=== PATIENT | male | born 1995 ===

== ENCOUNTER 2018-11-12 21:43 | Emergency (ER) | payer OTHER ==
[2018-11-12 22:03] VITALS: BP 127/87; PULSE 80; RESP 17; TEMP 98.3; O2SAT 100
[2018-11-12] MEDS ORDERED: Simethicone 80 mg Chewtab PO STA (23:04)
[2018-11-12] MEDS ORDERED: Alum-Mag Hydrox-Simethicone Susp (30 mL) PO STA (23:04)
[2018-11-12] MEDS ORDERED: Alum-Mag Hydrox-Simethicone Susp (30 mL) ONE (23:30)
--- NOTE | 2018-11-13 00:04 | ED PDOC ---
HPI: Abdomen Time Seen by Provider: 11/12/18 22:55 Chief Complaint (Nursing): Chest Pain Chief Complaint (Provider): Abdominal and Chest Pain History Per: Patient History/Exam Limitations: no limitations Onset/Duration Of Symptoms: Days (x 1 week) Current Symptoms Are (Timing): Still Present Context: Food Quality Of Discomfort: Burning, "Pain" Alleviating Factors: None Additional Complaint(s): 23 year old male with a no significant medical history presents to the ED for evaluation of a epigastric and chest pain for 1 week, worsening today, prompting ED visit. Patient describes pain as burning and states that it became worse after he ate papaya today. He reports that he feels like vomiting, but has not been able to. Patient states that he took an antacid that he does not remember the name of prior to arrival with no relief. Patient has normal bowel movements. Denies fever, history of abdominal surgery and any additional complaints. PMD: none provided Past Medical History Reviewed: Historical Data, Nursing Documentation, Vital Signs Vital Signs: Last Vital Signs Temp 98.3 F 11/12/18 22:00 Pulse 80 11/12/18 22:00 Resp 17 11/12/18 22:00 BP 127/87 11/12/18 22:00 Pulse Ox 100 11/12/18 22:00 - Medical History PMH: No Chronic Diseases - Surgical History Surgical History: No Surg Hx - Family History Family History: States: Unknown Family Hx - Social History Current smoker - smoking cessation education provided: No Alcohol: Occasional Drugs: Denies - Home Medications Home Medications: Ambulatory Orders Medication Instructions Recorded Omeprazole 20 mg PO DAILY #30 11/13/18 Simethicone [Gas Relief 80] 80 mg PO DAILY #12 ctb 11/13/18 - Allergies Allergies/Adverse Reactions: Allergies Allergy/AdvReac Type Severity Reaction Status Date / Time No Known Allergies Allergy Verified 11/12/18 22:04 Review of Systems ROS Statement: Except As Marked, All Systems Reviewed And Found Negative Cardiovascular: Positive for: Chest Pain (burning) Gastrointestinal: Positive for: Nausea (feels like vomiting, but has not. ), Abdominal Pain (epigastric; burning), Other Physical Exam - Reviewed Nursing Documentation Reviewed: Yes Vital Signs Reviewed: Yes - Physical Exam Appears: Positive for: Non-toxic, No Acute Distress Head Exam: Positive for: ATRAUMATIC, NORMAL INSPECTION, NORMOCEPHALIC Skin: Positive for: Normal Color, Warm, Dry. Negative for: Rash Eye Exam: Positive for: EOMI, Normal appearance, PERRL Neck: Positive for: Normal, Painless ROM, Supple Cardiovascular/Chest: Positive for: Regular Rate, Rhythm. Negative for: Murmur Respiratory: Positive for: Normal Breath Sounds. Negative for: Respiratory Distress Gastrointestinal/Abdominal: Positive for: Soft, Tenderness (epigastric tenderness to palpation). Negative for: Guarding, Rebound, Other (McBurney's point and Baig's sign) Back: Positive for: Normal Inspection. Negative for: L CVA Tenderness, R CVA Tenderness Extremity: Positive for: Normal ROM (x 4). Negative for: Deformity Neurological/Psych: Positive for: Awake, Alert, Normal Tone, Oriented (x 3). Negative for: Motor/Sensory Deficits - ECG O2 Sat by Pulse Oximetry: 100 (RA) Pulse Ox Interpretation: Normal Medical Decision Making Medical Decision Makin:04 MDM: likely GERD vs gastritis vs ulcer Not concerned for pancreatitis or biliary disease Orders: --EKG --Obstructive series [RAD] --Lidocaine 2% Viscous 15 ml PO --Maalox 30 ml PO --Mylicon Chew Tab 80 mg PO 00:25 Patient reports improvement of symptoms and will be discharge with prescriptions for Omeprazole and Simethicone tablets. Follow up with PMD. Return precautions provided. Scribe Attestation: Documented by Kary So, acting as a scribe Gisela Sauceda MD Provider Scribe Attestation: All medical record entries made by the Scribe were at my direction and personally dictated by me. I have reviewed the chart and agree that the record accurately reflects my personal performance of the history, physical exam, medical decision making, and the department course for this patient. I have also personally directed, reviewed, and agree with the discharge instructions and disposition. Disposition - Clinical Impression Clinical Impression: Gastritis - Patient ED Disposition Is Patient to be Admitted: No - Disposition Referrals: Johnie Brooks MD [Staff Provider] - Disposition: Routine/Home Disposition Time: 00:25 Condition: IMPROVED Prescriptions: Omeprazole 20 mg PO DAILY #30 capsule.dr Pyle [Gas Relief 80] 80 mg PO DAILY #12 ctb Instructions: Gastritis Forms: [employer] (Hungarian)
--- NOTE | 2018-11-13 11:06 | RAD ---
Date of service: 11/12/2018 PROCEDURE: Radiographs of the chest and abdomen (obstructive series) HISTORY: Abdominal pain, nausea. COMPARISON: No prior. TECHNIQUE: AP radiograph of the chest, with upright and supine radiographs of the abdomen. 3 views obtained. FINDINGS: CHEST: Lungs: Clear. Cardiovascular: Normal size heart. No pulmonary vascular congestion. No aortic atherosclerotic calcification present Pleura: No pleural fluid. No pneumothorax. Other findings: None. ABDOMEN AND PELVIS: Bowel: Constipation no evidence of mechanical obstruction. Free air: None. Bones: Unremarkable. Other findings: None. IMPRESSION: Constipation without fecal impaction or obstruction. Concordant results with the preliminary interpretation rendered by the emergency department physician procedure.
--- NOTE | 2018-11-13 23:08 | CARD ---
APPROVED REPORT Date of service: 11/12/2018 EKG Measurement Heart [id number] <Conclusion> Normal sinus rhythm Normal ECG
== END 2018-11-13 00:40 | disposition home or self-care (01) ==
LOC: H.ER 21:43
DX: K29.70 Gastritis, unspecified, without bleeding (principal); K21.9 Gastro-esophageal reflux disease without esophagitis